=== PATIENT | female | born 1950 | race Caucasian/White ===

== ENCOUNTER 2018-03-28 08:17 | Inpatient (IN) | payer OTHER, MEDICARE ==
[2018-03-17 12:51] VITALS: BMI 22.6
[~2018-03-28 08:17] MED LIST: CEFAZOLIN 1 GM/D5W 1 GRAM/50 ML BAG IVPB ONE; CELECOXIB 200 MG CAPSULE PO ONE; ROPIVICAINE 0.2%/MORPH PF/KETOROLAC - 51ML DISP.SYRINGE IA ONE; TRANEXAMIC ACID 1000 MG/10 ML VIAL IVPUSH ONE; oxyCODONE HCL 10 MG SUSTAINED ACTING TABLET PO ONE
[2018-03-28] MEDS ORDERED: CELECOXIB 200 MG CAPSULE ONE (08:47)
[2018-03-28] MEDS ORDERED: oxyCODONE HCL 10 MG SUSTAINED ACTING TABLET ONE (08:47)
[2018-03-28] MEDS ORDERED: MIDAZOLAM HCL 2 MG/2 ML SINGLE DOSE VIAL ONE ×2 (10:28→10:35)
[2018-03-28] MEDS ORDERED: BUPIVACAINE LIPOSOME/PF (EXPAREL) 266 MG/20 ML VIAL ONE (10:28)
[2018-03-28] MEDS ORDERED: BUPIVACAINE HCL/PF 2.5 MG/ML - 30 ML VIAL IJ ONE (10:28)
--- NOTE | 2018-03-28 10:40 | HP ---
History & Physical Update - History History: No Change - Physical Physical: No Change - Assessment Assessment: No Change - Plan Plan: No Change (H&P in chart from 03/20/2018)
[2018-03-28] MEDS ORDERED: ROPIVICAINE 0.2%/MORPH PF/KETOROLAC - 51ML DISP.SYRINGE IA ONE ×2 (10:41→12:35)
[2018-03-28] MEDS ORDERED: TRANEXAMIC ACID 1000 MG/10 ML VIAL ONE (11:24)
[2018-03-28] MEDS ORDERED: ceFAZolin SODIUM 1 GM VIAL ONE (11:24)
[2018-03-28] MEDS ORDERED: ONDANSETRON 4 MG/2 ML VIAL ONE (11:24)
[2018-03-28] MEDS ORDERED: DEXAMETHASONE SOD PHOSPHATE 4 MG/1 ML VIAL ONE (11:24)
[2018-03-28] MEDS ORDERED: PROPOFOL 20 ML ONE (12:37)
[2018-03-28] MEDS ORDERED: ONDANSETRON 4 MG/2 ML VIAL IVPUSH PRN ×2 (13:14→13:28)
[2018-03-28] MEDS ORDERED: MAG HYDROX/AL HYDROX/SIMETH 30 ML UNIT-DOSE CUP PO PRN (13:14)
[2018-03-28] MEDS ORDERED: LACTATED RINGERS SOLUTION 1,000 ML IV SCH (13:15)
--- NOTE | 2018-03-28 13:26 | OP ---
Operative Note - Note: Operative Date: 03/28/18 Pre-Operative Diagnosis: right knee osteoarthririts Operation: right total knee replacement/CORNELL Surgeon: Cali Silverman Electrical Unit Rebuilder: Rachel Horta Anesthesiologist/EEG TECHNOLOGIST: Sheng Muhammad Anesthesia: Spinal Estimated Blood Loss (mls): 50 Fluid Volume Replaced (mls): 1,000 Operative Report Dictated: Yes
[2018-03-28] MEDS ORDERED: PROMETHAZINE HCL 25 MG/1 ML VIAL IVPB PRN (13:28)
--- NOTE | 2018-03-28 13:28 | SURG ---
Surgery Dirt Bike Mechanic Note Dirt Bike Mechanic: Rachel Horta PA-C Date of Service: 03/28/18 Diagnosis: right knee osteoarthritis Procedure: right total knee replacement/CORNELL I was present for the entirety of the operative procedure. For further detail, please refer to operative report. Visit type - Case Type Case Type: Scheduled - Emergency Emergency Visit: No - New patient This patient is new to me today: Yes Date on this admission: 03/28/18
[2018-03-28] MEDS ORDERED: ACETAMINOPHEN 325 MG TABLET (FP) PO SCH (13:30)
[2018-03-28] MEDS: oxyCODONE HCL 5 MG TABLET PO PRN ×2 (16:58→23:27)
[2018-03-28] MEDS: CEFAZOLIN 1 GM/D5W 1 GRAM/50 ML BAG IVPB SCH (19:48)
[2018-03-28] MEDS ORDERED: QUEtiapine FUMARATE 25 MG TABLET (FP) ONE (21:09)
[2018-03-28] MEDS: ASPIRIN 325 MG TABLET PO SCH (21:19)
[2018-03-28] MEDS: ACETAMINOPHEN 325 MG TABLET (FP) PO SCH (21:19)
[2018-03-28] MEDS: oxyCODONE HCL 10 MG SUSTAINED ACTING TABLET PO SCH (21:21)
[2018-03-28] MEDS: SENNOSIDES/DOCUSATE COMBO (SENNA PLUS) TABLET (UD) PO SCH (21:21)
[2018-03-28] MEDS: amLODIPine BESYLATE 5 MG TABLET (FP) PO SCH (21:21)
[2018-03-28] MEDS: NORTRIPTYLINE HCL 25 MG CAPSULE PO SCH (21:22)
[2018-03-28] MEDS: QUEtiapine FUMARATE 50 MG TABLET PO SCH (21:23)
[2018-03-28] MEDS: POLYETHYLENE GLYCOL 3350 119 GM BTL PO SCH (22:28)
[2018-03-29] MEDS: ACETAMINOPHEN 325 MG TABLET (FP) PO SCH ×4 (02:10→21:36)
[2018-03-29] MEDS: oxyCODONE HCL 5 MG TABLET PO PRN ×5 (02:40→18:40)
[2018-03-29] MEDS: CEFAZOLIN 1 GM/D5W 1 GRAM/50 ML BAG IVPB SCH (03:10)
--- NOTE | 2018-03-29 05:33 | OP ---
DATE OF OPERATION: 03/28/2018 PREOPERATIVE DIAGNOSIS: Right knee osteoarthritis. POSTOPERATIVE DIAGNOSIS: Right knee osteoarthritis. OPERATION PERFORMED: Right cemented total knee arthroplasty with MAKOplasty Whiskey Regauger. SURGEON: Cali Silverman MD DICE DEALER: ROBBIE Perla TYPE OF ANESTHESIA: Spinal and block DISPOSITION: Patient returned to the recovery room in stable condition. COMPONENTS USED: Hernan Triathlon, size 2 CR femur, size 1 [place] tibia, 9-mm ultra-congruent polyethylene, and 29-mm patella. DRAINS PLACED: One Hemovac. ESTIMATED BLOOD LOSS: Less than 60 mL. TOTAL TOURNIQUET TIME: 85 minutes. PREOPERATIVE RANGE OF MOTION: 5-130. POSTOPERATIVE RANGE OF MOTION: 0-135. INDICATIONS FOR THE PROCEDURE: Patient failed nonoperative treatment for right knee arthritis and was indicated for right total knee replacement. Preoperatively in the waiting area as well as the office, I had a long discussion with the patient regarding the plan, the expected outcome, and the risks, benefits, and alternatives of surgery. The risks include, but are not limited to, infection which may require future surgery and removal of implants, bleeding which may require a transfusion, damage to nerves, arteries, veins, tendons, muscles, and other adjacent structures leading to possible numbness, weakness, decreased function, and/or possible need for surgical repair. Also discussed was the possibility of intraoperative and postoperative fractures, implant loosening, stiffness, need for extensive therapy and need for revision surgery for a variety of reasons. We also discussed blood clots and other possible medical complications. This was discussed at length, and consent was obtained. PROCEDURE IN DETAIL: Patient was taken to the operating room and placed on the operating table in the supine position. Following induction of spinal anesthesia, a well-padded tourniquet was placed high in the right thigh, and the right lower extremity was prepped and draped in a sterile fashion. A time-out was performed to confirm the correct side. We verified that the side was marked and confirmed the correct patient and procedure to be performed as well as that the patient received the appropriate preoperative antibiotics and tranexamic acid and had a compression device on the nonoperative leg. The tourniquet was elevated and a midline incision was performed. Patient checkpoints were placed, and through stab incisions along the femur and tibia, the antennas were drilled into place. The patient was registered, and the joint was stressed, and surgery plan was made. We then, while protecting the surrounding soft tissues and using the Mangatar robot, made our bone cuts. We then placed the laminar dining service worker sequentially in lateral and medial joint spaces. Posterior aspects, cruciate ligaments, and menisci were all excised. A trial tibia was placed in the appropriate external rotation. Trial femur was placed. Polyethylene was then placed with a 9-mm polyethylene. We had full extension and were well balanced with regards to varus and valgus stress. We had full flexion and the patella tracked centrally. The patella was then measured at 22 mm, and 8.25 mm were cut off using a guide. We reconstructed the 29-mm button and performed a lateral double cut. With the patellar trial in place, the patella tracked centrally. There was good stability, soft tissue tension, and range of motion. were drilled in the femur. The tibia was punched in the appropriate external rotation. Trials were removed after a 3-minute soak with a diluted Betadine solution. Then, the knee was copiously irrigated, and sequential supplementation was performed starting with the tibia, then the femur. Excess cement was removed. We inserted the final polyethylene and it seated flush. We made sure all excess cement was removed. We cemented the patella and made sure all excess cement was removed. The knee was copiously irrigated. A local anesthetic was injected. With the final implants in place, we had good stability, soft tissue tension, range of motion, and patella tracked centrally. A deep drain was placed. The arthrotomy was closed with 0 Vicryl and 0 V-Loc, and then the skin was closed with 2-0 Vicryl and wesley. The knee was wrapped in a dry sterile compression dressing. Prior to closure, we had removed all the checkpoints and antenna, and after the dry sterile compressive dressing, the tourniquet was released. Compartments were soft at the end of the procedure. Pulses were palpated. Patient was transferred to the recovery room in stable condition. WOUND CLASSIFICATION: Clean. COMPLICATIONS: None. SPECIMENS: Bone. Deven [id number]
[2018-03-29 08:26] LABS: HEMOGLOBIN 9.6 GM/dl (10.7-15.3); MCHC 33.2 g/dl (32.0-36.0); MEAN CELL VOLUME 96.4 fl (80-96); MEAN PLT VOLUME 6.7 fl (7.5-11.1); PLATELET COUNT 262 K/MM3 (134-434); RBC 3.01 M/mm3 (3.60-5.2); RDW 13.4 % (11.6-15.6); WHITE BLOOD COUNT 7.5 K/mm3 (4.0-10.8)
[2018-03-29 08:39] LABS: ANION GAP 6 MMOL/L (8-16); BLOOD UREA NITROGEN 11 mg/dl (7-18); CALCIUM 8.5 mg/dl (8.4-10.2); CHLORIDE 107 mmol/L (98-107); CO2 20 mmol/L (22-28); CREATININE 0.6 mg/dl (0.6-1.3); GLUCOSE,RANDOM 117 mg/dl (74-106); MAGNESIUM 1.7 mg/dL (1.8-2.4); POTASSIUM 3.7 mmol/L (3.5-5.1); SODIUM 133 mmol/L (136-145)
[2018-03-29] MEDS ORDERED: PT OWN MED DRAWER 7, Y5N ONE (09:18)
--- NOTE | 2018-03-29 09:43 | PN ---
Progress Note (short form) - Note Progress Note: patient seen and examined pain controlled no events labs reviewed vitals stable nad a and o x3 nvid compartments soft dressing dry hvac removed A/P: POD#1 sp r tka pt/ot/wbat repeat labs tomorrow dc when stabe
[2018-03-29] MEDS: CELECOXIB 200 MG CAPSULE PO SCH (09:59)
[2018-03-29] MEDS: POLYETHYLENE GLYCOL 3350 119 GM BTL PO SCH ×2 (09:59→21:37)
[2018-03-29] MEDS: FERROUS SO4 325 MG TABLET (FP) PO SCH (09:59)
[2018-03-29] MEDS: ASPIRIN 325 MG TABLET PO SCH ×2 (09:59→21:36)
[2018-03-29] MEDS: oxyCODONE HCL 10 MG SUSTAINED ACTING TABLET PO SCH ×2 (10:00→21:36)
[2018-03-29] MEDS: NORTRIPTYLINE HCL 10 MG CAPSULE PO SCH (10:01)
[2018-03-29] MEDS: SENNOSIDES/DOCUSATE COMBO (SENNA PLUS) TABLET (UD) PO SCH ×2 (10:01→21:36)
[2018-03-29] MEDS: PANTOPRAZOLE 40 MG TABLET (FP) PO SCH (10:02)
[2018-03-29] MEDS: MULTIVITAMINS (DAILY MVI) TABLET (FP) PO SCH (10:03)
[2018-03-29] MEDS: risperiDONE 0.25 MG TABLET (FP) PO SCH (10:03)
--- NOTE | 2018-03-29 11:19 | PN ---
Physical Exam: SUBJECTIVE: Patient seen and examined oob to chair. Right knee pain 6/10. Tolerating PO, no nausea. OBJECTIVE: Vital Signs Period Temp Pulse Resp BP Sys/Agarwal Pulse Ox Last 24 Hr 98.0 F-98.2 F 65-87 14-20 89-140/58-88 96-100 GENERAL: The patient is awake, alert, and fully oriented, in no acute distress. LUNGS: Breath sounds equal, clear to auscultation bilaterally, no wheezes, no crackles, no accessory muscle use. HEART: Regular rate and rhythm, S1, S2 . ABDOMEN: Soft, nontender, nondistended LOWER EXTREMITIES: 2+ pulses, warm, well-perfused; TEDs, SCDs bilaterally; right toes 1+edema, motor/sensory intact, good pulse, warm, pink NEUROLOGICAL: Cranial nerves II through XII grossly intact. Normal speech, gait not observed. Laboratory Results - last 24 hr 03/29/18 03/29/18 07:20 07:20 WBC 7.5 RBC 3.01 L Hgb 9.6 L Hct 29.0 L D MCV 96.4 H MCH 32.0 MCHC 33.2 RDW 13.4 Plt Count 262 MPV 6.7 L Sodium 133 L Potassium 3.7 Chloride 107 Carbon Dioxide 20 L Anion Gap 6 L BUN 11 Creatinine 0.6 Creat Clearance w eGFR > 60 Random Glucose 117 H Calcium 8.5 Magnesium 1.7 L Active Medications Generic Name Dose Route Start Last Admin Trade Name Freq PRN Reason Stop Dose Admin Acetaminophen 650 mg 03/28/18 21:00 03/29/18 02:10 Tylenol - PO 03/31/18 20:59 650 mg Q6H YUDITH Administration Al Hydroxide/Mg Hydroxide 30 ml 03/28/18 13:14 Mylanta Oral Suspension - PO Q4H PRN DYSPEPSIA Amlodipine Besylate 5 mg 03/28/18 22:00 03/28/18 21:21 Norvasc - PO 5 mg HS YUDITH Administration Aspirin 325 mg 03/28/18 22:00 03/29/18 09:59 Asa - PO 325 mg BID YUDITH Administration Celecoxib 200 mg 03/29/18 10:00 03/29/18 09:59 Celebrex - PO 200 mg DAILY YUDITH Administration Fentanyl 50 mcg 03/28/18 13:28 Sublimaze Injection - IVPUSH [id number] PRN PAIN-PACU ORDER X 4 DOSES ONLY Ferrous Sulfate 325 mg 03/29/18 10:00 03/29/18 09:59 Feosol - PO 325 mg DAILY YUDITH Administration Metoprolol Succinate 50 mg 03/29/18 10:00 Toprol Xl - PO DAILY [facility] Multivitamins/Minerals/Vitamin C 1 tab 03/29/18 10:00 03/29/18 10:03 Tab-A-Vit - PO 1 tab DAILY YUDITH Administration Nortriptyline HCl 10 mg 03/29/18 10:00 03/29/18 10:01 Pamelor - PO 10 mg DAILY YUDITH Administration Nortriptyline HCl 25 mg 03/28/18 22:00 03/28/18 21:22 Pamelor - PO 25 mg HS YUDITH Administration Ondansetron HCl 4 mg 03/28/18 13:14 Zofran Injection IVPUSH Q6H PRN NAUSEA Oxycodone HCl 5 mg 03/28/18 13:28 03/29/18 10:03 Roxicodone - PO 5 mg Q3H PRN Administration PAIN LEVEL 1-5 Oxycodone HCl 10 mg 03/28/18 13:28 03/29/18 06:16 Roxicodone - PO 10 mg Q3H PRN Administration PAIN LEVEL 6-10 Oxycodone HCl 10 mg 03/28/18 22:00 03/29/18 10:00 Oxycontin - PO 03/31/18 13:30 10 mg BID YUDITH Administration Pantoprazole Sodium 40 mg 03/29/18 10:00 03/29/18 10:02 Protonix - PO 40 mg DAILY YUDITH Administration Polyethylene Glycol 17 gm 03/28/18 22:00 03/29/18 09:59 Miralax (For Daily Use) - PO 17 gm BID YUDITH Administration Promethazine HCl 12.5 mg 03/28/18 13:28 Phenergan Injection - IVPB Q6H PRN NAUSEA-FOR RESCUE AFTER 15 MIN Quetiapine Fumarate 75 mg 03/28/18 22:00 03/28/18 21:23 Seroquel - PO 75 mg HS YUDITH Administration Risperidone 0.75 mg 03/29/18 10:00 03/29/18 10:03 Risperdal - PO 0.75 mg DAILY YUDITH Administration Senna/Docusate Sodium 2 tablet 03/28/18 22:00 10/06/18 10:01 Pericolace - PO 2 tablet BID YUDITH Administration ASSESSMENT/PLAN 67 year-old female with a PMH significant for HTN, anemia, GERD, depression, and DJD. Admitted for right total knee replacement. Degenerative joint disease s/p right TKR/CORNELL on 03/28 --POD #1 --seen and evaluated by surgery this morning, Hemovac removed --pain well managed on PO meds --perioperative antibiotics --incentive spirometry --bowel regimen --PT/WBAT --ASA 325mg BID x 6 weeks Hypertension --BP stable --continue amlodipine, Toprol XL Anemia --h/h stable GERD -continue protonix Depression --continue nortriptyline, seroquel, risperidone Hypomagnesemia --repleted FEN Fluids: PO intake adequate Electrolytes: replete as indicated Nutrition: regular diet DVT prophylaxis: SCDs, TEDs, ASA Physical therapy Dispo: continues to require inpatient care. Full code. Visit type - Emergency Visit Emergency Visit: No - New Patient This patient is new to me today: Yes Date on this admission: 03/29/18 - Critical Care Critical Care patient: No
[2018-03-29] MEDS ORDERED: MAGNESIUM SULF 50% (8.12 MEQ/2 ML-1 GM VIAL) IVPB ONE (11:20)
[2018-03-29] MEDS ORDERED: QUEtiapine FUMARATE 25 MG TABLET (FP) ONE (21:25)
[2018-03-29] MEDS: NORTRIPTYLINE HCL 25 MG CAPSULE PO SCH (21:36)
[2018-03-29] MEDS: QUEtiapine FUMARATE 50 MG TABLET PO SCH (21:37)
[2018-03-29] MEDS: amLODIPine BESYLATE 5 MG TABLET (FP) PO SCH (21:37)
[2018-03-30] MEDS: oxyCODONE HCL 5 MG TABLET PO PRN ×5 (00:49→20:34)
[2018-03-30] MEDS: ACETAMINOPHEN 325 MG TABLET (FP) PO SCH ×4 (03:00→20:34)
[2018-03-30] MEDS ORDERED: PT OWN MED DRAWER 7, Y5N ONE (08:46)
[2018-03-30] MEDS: risperiDONE 0.25 MG TABLET (FP) PO SCH (09:20)
[2018-03-30] MEDS: FERROUS SO4 325 MG TABLET (FP) PO SCH (09:21)
[2018-03-30] MEDS: SENNOSIDES/DOCUSATE COMBO (SENNA PLUS) TABLET (UD) PO SCH ×2 (09:21→22:31)
[2018-03-30] MEDS: MULTIVITAMINS (DAILY MVI) TABLET (FP) PO SCH (09:22)
[2018-03-30] MEDS: ASPIRIN 325 MG TABLET PO SCH ×2 (09:22→22:30)
[2018-03-30] MEDS: POLYETHYLENE GLYCOL 3350 119 GM BTL PO SCH ×2 (09:22→22:32)
[2018-03-30] MEDS: PANTOPRAZOLE 40 MG TABLET (FP) PO SCH (09:22)
[2018-03-30] MEDS: CELECOXIB 200 MG CAPSULE PO SCH (09:22)
[2018-03-30] MEDS: oxyCODONE HCL 10 MG SUSTAINED ACTING TABLET PO SCH ×2 (09:23→22:30)
[2018-03-30] MEDS: NORTRIPTYLINE HCL 10 MG CAPSULE PO SCH (09:23)
[2018-03-30 09:25] LABS: BASO % 0.4 % (0-2.0); EOS % 0.4 % (0-4.5); HEMATOCRIT 28.6 % (32.4-45.2); HEMOGLOBIN 9.5 GM/dl (10.7-15.3); LYMPH % 13.6 % (8-40); MCHC 33.2 g/dl (32.0-36.0); MEAN CELL VOLUME 96.3 fl (80-96); MEAN PLT VOLUME 6.8 fl (7.5-11.1); MONO % 8.3 % (3.8-10.2); NEUT % 77.3 % (42.8-82.8); PLATELET COUNT 260 K/MM3 (134-434); RBC 2.96 M/mm3 (3.60-5.2); RDW 13.1 % (11.6-15.6); WHITE BLOOD COUNT 8.3 K/mm3 (4.0-10.8)
[2018-03-30 09:33] LABS: ANION GAP 8 MMOL/L (8-16); BLOOD UREA NITROGEN 7 mg/dl (7-18); CALCIUM 8.2 mg/dl (8.4-10.2); CHLORIDE 104 mmol/L (98-107); CO2 20 mmol/L (22-28); GLUCOSE,RANDOM 112 mg/dl (74-106); MAGNESIUM 1.8 mg/dL (1.8-2.4); POTASSIUM 3.8 mmol/L (3.5-5.1); SODIUM 132 mmol/L (136-145)
[2018-03-30 09:41] LABS: CREATININE < 0.6 mg/dl (0.6-1.3)
--- NOTE | 2018-03-30 10:33 | PN ---
Physical Exam: SUBJECTIVE: Patient seen and examined oob to chair. Seen twice ambulating in the hallway. OBJECTIVE: Vital Signs Period Temp Pulse Resp BP Sys/Agarwal Pulse Ox Last 24 Hr 98.5 F-99.0 F 78-87 16-17 133-145/68-76 98-100 GENERAL: The patient is awake, alert, and fully oriented, in no acute distress. LUNGS: Breath sounds equal, clear to auscultation bilaterally, no wheezes, no crackles, no accessory muscle use. HEART: Regular rate and rhythm, S1, S2 . ABDOMEN: Soft, nontender, nondistended LOWER EXTREMITIES: 2+ pulses, warm, well-perfused; TEDs, SCDs bilaterally; right toes swelling resolving, motor/sensory intact, good pulse, warm, pink NEUROLOGICAL: Cranial nerves II through XII grossly intact. Normal speech, gait not observed. Laboratory Results - last 24 hr 03/30/18 03/30/18 06:30 06:30 WBC 8.3 RBC 2.96 L Hgb 9.5 L Hct 28.6 L MCV 96.3 H MCH 32.0 MCHC 33.2 RDW 13.1 Plt Count 260 MPV 6.8 L Absolute Neuts (auto) 6.5 Neutrophils % 77.3 Lymphocytes % 13.6 Monocytes % 8.3 Eosinophils % 0.4 Basophils % 0.4 Sodium 132 L Potassium 3.8 Chloride 104 Carbon Dioxide 20 L Anion Gap 8 BUN 7 Creatinine < 0.6 L Creat Clearance w eGFR > 60 Random Glucose 112 H Calcium 8.2 L Magnesium 1.8 Active Medications Generic Name Dose Route Start Last Admin Trade Name Kenjiq PRN Reason Stop Dose Admin Acetaminophen 650 mg 03/28/18 21:00 03/30/18 08:55 Tylenol - PO 03/31/18 20:59 650 mg Q6H YUDITH Administration Al Hydroxide/Mg Hydroxide 30 ml 03/28/18 13:14 Mylanta Oral Suspension - PO Q4H PRN DYSPEPSIA Amlodipine Besylate 5 mg 03/28/18 22:00 03/29/18 21:37 Norvasc - PO 5 mg HS YUDITH Administration Aspirin 325 mg 03/28/18 22:00 03/30/18 09:22 Asa - PO 325 mg BID YUDITH Administration Celecoxib 200 mg 03/29/18 10:00 03/30/18 09:22 Celebrex - PO 200 mg DAILY YUDITH Administration Fentanyl 50 mcg 03/28/18 13:28 Sublimaze Injection - IVPUSH [id number] PRN PAIN-PACU ORDER X 4 DOSES ONLY Ferrous Sulfate 325 mg 03/29/18 10:00 03/30/18 09:21 Feosol - PO 325 mg DAILY YUDITH Administration Metoprolol Succinate 50 mg 03/29/18 10:00 03/30/18 09:21 Toprol Xl - PO 50 mg DAILY YUDITH Administration Multivitamins/Minerals/Vitamin C 1 tab 03/29/18 10:00 03/30/18 09:22 Tab-A-Vit - PO 1 tab DAILY YUDITH Administration Nortriptyline HCl 10 mg 03/29/18 10:00 03/30/18 09:23 Pamelor - PO 10 mg DAILY YUDITH Administration Nortriptyline HCl 25 mg 03/28/18 22:00 03/29/18 21:36 Pamelor - PO 25 mg HS YUDITH Administration Ondansetron HCl 4 mg 03/28/18 13:14 Zofran Injection IVPUSH Q6H PRN NAUSEA Oxycodone HCl 5 mg 03/28/18 13:28 03/29/18 10:03 Roxicodone - PO 5 mg Q3H PRN Administration PAIN LEVEL 1-5 Oxycodone HCl 10 mg 03/28/18 13:28 03/30/18 09:21 Roxicodone - PO 10 mg Q3H PRN Administration PAIN LEVEL 6-10 Oxycodone HCl 10 mg 03/28/18 22:00 03/30/18 09:23 Oxycontin - PO 03/31/18 13:30 10 mg BID YUDITH Administration Pantoprazole Sodium 40 mg 03/29/18 10:00 03/30/18 09:22 Protonix - PO 40 mg DAILY YUDITH Administration Polyethylene Glycol 17 gm 03/28/18 22:00 03/30/18 09:22 Miralax (For Daily Use) - PO 17 gm BID YUDITH Administration Promethazine HCl 12.5 mg 03/28/18 13:28 Phenergan Injection - IVPB Q6H PRN NAUSEA-FOR RESCUE AFTER 15 MIN Quetiapine Fumarate 75 mg 03/28/18 22:00 03/29/18 21:37 Seroquel - PO 75 mg HS YUDITH Administration Risperidone 0.75 mg 03/29/18 10:00 03/30/18 09:20 Risperdal - PO 0.75 mg DAILY YUDITH Administration Senna/Docusate Sodium 2 tablet 03/28/18 22:00 03/30/18 09:21 Pericolace - PO 2 tablet BID YUDITH Administration ASSESSMENT/PLAN: 67 year-old female with a PMH significant for HTN, anemia, GERD, depression, and DJD. Admitted for right total knee replacement. Degenerative joint disease s/p right TKR/CORNELL on 03/28 --POD #2 --Hemovac removed 03/29 --pain well managed on PO meds --perioperative antibiotics complete --incentive spirometry --bowel regimen; had BM 03/29, passing flatus --PT/WBAT --ASA 325mg BID x 6 weeks Hypertension --BP stable --continue amlodipine, Toprol XL Anemia --h/h stable GERD -continue protonix Depression --continue nortriptyline, seroquel, risperidone Hypomagnesemia --resolved FEN Fluids: PO intake adequate Electrolytes: replete as indicated Nutrition: regular diet DVT prophylaxis: SCDs, TEDs, ASA Physical therapy Dispo: continues to require inpatient care. Full code. Visit type - Emergency Visit Emergency Visit: Yes ED Registration Date: 03/28/18 Care time: The patient presented to the Emergency Department on the above date and was hospitalized for further evaluation of their emergent condition. - New Patient This patient is new to me today: No - Critical Care Critical Care patient: No
[2018-03-30] MEDS: amLODIPine BESYLATE 5 MG TABLET (FP) PO SCH (22:30)
[2018-03-30] MEDS ORDERED: QUEtiapine FUMARATE 25 MG TABLET (FP) PO SCH (22:30)
[2018-03-30] MEDS: NORTRIPTYLINE HCL 25 MG CAPSULE PO SCH (22:31)
[2018-03-31] MEDS: ACETAMINOPHEN 325 MG TABLET (FP) PO SCH ×2 (03:46→08:45)
[2018-03-31] MEDS: oxyCODONE HCL 5 MG TABLET PO PRN ×2 (06:17→11:17)
--- NOTE | 2018-03-31 08:59 | DS ---
Physical Exam: SUBJECTIVE: Patient seen and examined, patient ambulated with physical therapy today, walked 400feet with physical therapy denies any chest pain or shortness of breath. OBJECTIVE: Patient is a 67-year-old female with a past medical history of degenerative joint disease, depression, Osteoporosis, hypertension, and GERD. Patient is S/P right total knee replacement (christopher), Dr Spence, spinal anesthesia, March 28, 2018. Vital Signs Period Temp Pulse Resp BP Sys/Agarwal Pulse Ox Last 24 Hr 98.4 F-99 F 90-94 16-16 131-153/64-82 97-97 PHYSICAL EXAM GENERAL: The patient is awake, alert, and fully oriented, in no acute distress. HEAD: Normal with no signs of trauma. EYES: PERRL, extraocular movements intact, sclera anicteric, conjunctiva clear. ENT: Ears normal, nares patent, oropharynx clear without exudates, moist mucous membranes. NECK: Trachea midline, full range of motion, supple. LUNGS: Breath sounds equal, clear to auscultation bilaterally, no wheezes, no crackles, no accessory muscle use. HEART: Regular rate and rhythm, S1, S2 without murmur, rub or gallop. ABDOMEN: Soft, nontender, nondistended, normoactive bowel sounds, no guarding, no rebound, no hepatosplenomegaly, no masses. EXTREMITIES: 2+ pulses, warm, well-perfused, no edema. RIGHT LOWER EXTEMITY: scd/marisol, less than 3 second capillary refill, +3 pedal pulse NEUROLOGICAL: Cranial nerves II through XII grossly intact. Normal speech, steady gait noted. PSYCH: Normal mood, normal affect. SKIN: Warm, dry, normal turgor, no rashes or lesions noted. LABS Laboratory Results - last 24 hr 03/30/18 03/30/18 06:30 06:30 WBC 8.3 RBC 2.96 L Hgb 9.5 L Hct 28.6 L MCV 96.3 H MCH 32.0 MCHC 33.2 RDW 13.1 Plt Count 260 MPV 6.8 L Absolute Neuts (auto) 6.5 Neutrophils % 77.3 Lymphocytes % 13.6 Monocytes % 8.3 Eosinophils % 0.4 Basophils % 0.4 Sodium 132 L Potassium 3.8 Chloride 104 Carbon Dioxide 20 L Anion Gap 8 BUN 7 Creatinine < 0.6 L Creat Clearance w eGFR > 60 Random Glucose 112 H Calcium 8.2 L Magnesium 1.8 HOSPITAL COURSE: Patient was admitted from to the medical surgical floor after an elective right total knee replacement on 03/28/2018, with spinal anesthesia. The patient ambulated to [facility] without any difficulty on postoperative day 1with physical therapy. The patient will receive at home physical therapy for the first 5 days postoperatively. Hemovac drain was removed on postoperative day [address] Spence. Pain was controlled with both narcotic and nonnarcotic analegesics. Blood pressure remained at goal and home medications was continued throughout admission PLAN -discharge home with [facility] sisters and at home physical therapy - discharge instructions reviewed with patient at length. - return precautions reviewed. Date of Admission:03/28/18 Date of Discharge: 03/31/18 Minutes to complete discharge: 45 Discharge Summary Reason For Visit: RIGHT KNEE OSTEOARTHRITIS Condition: Improved - Instructions Diet, Activity, Other Instructions: YOUR PRESCRIPTIONS WAS GIVEN TO YOU BY DR SPENCE Discharge Instructions for Knee Replacement Post Operative Instructions Physical activity Physical Therapist will come to your home for the first 5 days. You will be set up with outpatient PT (physical therapy) at your first post-operative visit. Use assistive device (waker) for ambulation at all times. Weight bearing as tolerated on your surgical side. Do not put pillow under knee. May put pillow under heel. Wound care Leave your surgical dressing in place. Do not change the dressing until seen by your surgeon in the office. No baths, Do not submerge your incision. Do not apply any ointments or lotions to your incision. Please call the office if your dressing is soiled/dirty or is falling off. Apply Graduated Compression Stockings (TEDS) to both lower extremities - remove daily for hygiene ONLY. Diet There are no dietary restrictions. Eat healthy, high-fiber foods. Drink 6 to 8 glasses of liquid each day. This will assist in keeping your bowels are regular. Pain management Any pain prescription medication ordered should be taken as prescribed for moderate to severe pain. Do not take additional Tylenol while taking Percocet. Take Aspirin 325 mg two times a day to prevent blood clots. Call for any of the following: Severe pain not relieved by medication Fever of 101 or higher Excessive bleeding or drainage on dressing If you experience chest pain or shortness of breath, please seek emergency care immediately. Please call the office to confirm your post-op appointment for the week following surgery. You were given discharge instructions and prescriptions in the office by your surgeon, take your medications as prescribed. Referrals: Cali Specne MD [Staff Physician] - Disposition: VNS/HOME HEALTH CARE - Home Medications Comprehensive Discharge Medication List: Ambulatory Orders Amlodipine Besylate [Norvasc -] 5 mg PO HS 03/17/18 Ferrous Sulfate [Iron] 325 mg PO DAILY 03/17/18 Metoprolol Succinate [Toprol Xl] 50 mg PO DAILY 03/17/18 Nortriptyline HCl [Pamelor -] 10 mg PO DAILY 03/17/18 Omeprazole 20 mg PO BID 03/17/18 Quetiapine Fumarate [Seroquel -] 75 mg PO HS 03/17/18 Risperidone 0.75 mg PO DAILY 03/17/18 Nortriptyline HCl [Pamelor -] 25 mg PO HS 03/28/18 This patient is new to me today: Yes Date on this admission: 03/31/18 Emergency Visit: No Critical Care patient: No - Discharge Referral Referred to [facility] No
[2018-03-31] MEDS ORDERED: PT OWN MED DRAWER 7, Y5N ONE (09:33)
[2018-03-31] MEDS: CELECOXIB 200 MG CAPSULE PO SCH (09:38)
[2018-03-31] MEDS: ASPIRIN 325 MG TABLET PO SCH (09:38)
[2018-03-31] MEDS: SENNOSIDES/DOCUSATE COMBO (SENNA PLUS) TABLET (UD) PO SCH (09:38)
[2018-03-31] MEDS: FERROUS SO4 325 MG TABLET (FP) PO SCH (09:39)
[2018-03-31] MEDS: MULTIVITAMINS (DAILY MVI) TABLET (FP) PO SCH (09:39)
[2018-03-31] MEDS: oxyCODONE HCL 10 MG SUSTAINED ACTING TABLET PO SCH (09:39)
[2018-03-31] MEDS: risperiDONE 0.25 MG TABLET (FP) PO SCH (09:39)
[2018-03-31] MEDS: PANTOPRAZOLE 40 MG TABLET (FP) PO SCH (09:39)
[2018-03-31] MEDS: POLYETHYLENE GLYCOL 3350 119 GM BTL PO SCH (09:40)
[2018-03-31] MEDS: NORTRIPTYLINE HCL 10 MG CAPSULE PO SCH (09:40)
[2018-03-31] MEDS ORDERED: oxyCODONE HCL 5 MG TABLET PO PRN (14:12)
[2018-03-31] MEDS ORDERED: oxyCODONE HCL 5 MG TABLET PO ONE (14:19)
[2018-03-31 14:29] VITALS: BP 121/67; PULSE 90; TEMP 98.2
--- NOTE | 2018-04-04 14:25 | PATH ---
Surgical Pathology Report Patient Name: DOUGLAS GRACE Med. Rec. #: [id number] /Age/Gender: 1950 (Age: 67) / F Account: [id number] Location: [facility] Taken: 03/28/2018 Received: 03/28/2018 Reported: 04/02/2018 Physicians: Cali Silverman M.D. Specimen(s) Received RIGHT KNEE BONES Clinical History Right knee osteoarthritis Final Diagnosis BONE, KNEE, RIGHT, TOTAL KNEE REPLACEMENT MAKOPLASTY: BONE WITH DEGENERATIVE JOINT DISEASE, DENSE FIBROCONNECTIVE TISSUE, AND SYNOVIUM. Electronically Signed Itzel Chaudhari M.D. Gross Description Received in formalin labeled "right knee bones," is a 9.5 x 9.0 x 1.6 cm aggregate of multiple portions of bone and soft tissue. The tibial plateau measures 6.5 x 4.4 x 1.6 cm. There are no areas of eburnation identified. The articular surfaces are gonzalez-yellow and focally granular. The underlying trabecular bone is yellow and hard. Food And Beverage Operations Manager sections are submitted in one cassette, following decalcification. /04/01/2018 saudi04/01/2018
== END 2018-03-31 14:45 | disposition home health service (06) | DRG 470 ==
LOC: FASU 08:17 → FM/S 08:17 → EDSTATUS 10:00 → FM/S 14:37
PROVIDERS: ADMIT Orthopaedic Surgery; ATTEND Nurse Practitioner Family
PROC: 0SRC0J9 Replacement of Right Knee Joint with Synthetic Substitute, Cemented, Open Approach (ICD-10-PCS; principal; 2018-03-28 11:29)
DX: M17.11 Unilateral primary osteoarthritis, right knee (principal); I10 Essential (primary) hypertension; K21.9 Gastro-esophageal reflux disease without esophagitis; F32.9 Major depressive disorder, single episode, unspecified; E83.42 Hypomagnesemia; D64.9 Anemia, unspecified
CPT/HCPCS: 36415; 73560-TC-RT-FY; 80048; 83735; 85025; 85027; 88305-TC; 88311-TC; 94760; 97116-GP; 97162-GP